=== PATIENT | female | born 1960 | race Two or more races ===

== ENCOUNTER 2017-03-23 00:14 | Emergency (ER) | payer MEDICAID ==
[2017-03-23] MEDS ORDERED: Albuterol/Ipratropium 3.0-0.5 MG/3 ML Neb Soln NEB ONE (00:44)
--- NOTE | 2017-03-23 00:47 | EDM.PDOC ---
ED HPI GENERAL MEDICAL PROBLEM - General Chief Complaint: Respiratory Problem Stated Complaint: COUGHING, CONGESTION Time Seen by Provider: 03/23/17 00:39 - History of Present Illness INITIAL COMMENTS - FREE TEXT/NARRATIVE: HISTORY AND PHYSICAL: History of present illness: The patient is a 56-year-old female with no stated radical history who presents with a 36 hour history of cough only occasionally productive of some clear phlegm sore throat body aches and subjective fevers and chills. She has not had any chest pain except when she coughs and otherwise does not have chest pain or abdominal pain. She has not taken her temperature with a thermometer. She has no vomiting or diarrhea and did not get her flu shot this year. Review of systems: As per history of present illness and below otherwise all systems reviewed and negative. Past medical history: As per history of present illness and as reviewed below otherwise noncontributory. Surgical history: As per history of present illness and as reviewed below otherwise noncontributory. Social history: No reported history of drug or alcohol abuse. Family history: As per history of present illness and as reviewed below otherwise noncontributory. Physical exam: Gen.: Well-developed well-nourished overweight female who is nontoxic and speaking clearly in the ED. Vital signs are noted by me HEENT: Atraumatic, normocephalic, pupils reactive, negative for conjunctival pallor or scleral icterus, mucous membranes moist, throat clear of exudates but there is posterior oropharyngeal erythema, there is no cervical adenopathy or nuchal rigidity, neck supple, nontender, trachea midline. Lungs: Clear to auscultation with diminished breath sounds at the bases but no worker breathing no stridor and no wheezing, breath sounds equal bilaterally, chest nontender. Heart: S1S2, regular, negative for clicks, rubs, or JVD. Abdomen: Soft, nondistended, nontender. Negative for masses or hepatosplenomegaly. Negative for costovertebral tenderness. Pelvis: Stable nontender. Genitourinary: Deferred. Rectal: Deferred. Extremities: Atraumatic, negative for cords or calf pain. Neurovascular unremarkable. Neuro: Awake, alert, oriented. Cranial nerves II through XII unremarkable. Cerebellum unremarkable. Motor and sensory unremarkable throughout. Exam nonfocal. Diagnostics: Rapid strep influenza chest x-ray EKG Therapeutics: DuoNeb Impression: Influenza A Discussed the patient and family at bedside Tamiflu and its low potency but will write a prescription that they can fill and take as they choose. Definitive disposition and diagnosis as appropriate pending reevaluation and review of above. chest Pain Score (Numeric/FACES): 9 - Related Data Allergies Allergy/AdvReac Type Severity Reaction Status Date / Time No Known Allergies Allergy Verified 03/23/17 00:28 Home Meds: Home Meds . 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 ED EXAM, GENERAL - Physical Exam Exam: See Below (See dictation) Course - Vital Signs Last Recorded V/S: Last Vital Signs Temp 37.1 C 03/23/17 00:28 Pulse 100 03/23/17 00:28 Resp 18 03/23/17 00:28 BP 168/86 H 03/23/17 00:28 Pulse Ox 93 L 03/23/17 00:28 - Orders/Labs/Meds Orders: Active Orders 24 hr Category Date Time Status EKG Documentation Completion [RC] STAT Care 03/23/17 00:44 Active RT Aerosol Therapy [RC] ASDIRECTED Care 03/23/17 00:44 Active Chest 2V [CR] Stat Exams 03/23/17 00:44 Taken CULTURE STREP A CONFIRMATION [RM] Stat Lab 03/23/17 01:00 Results STREP SCRN A RAPID W CULT CONF [RM] Stat Lab 03/23/17 01:00 Results Meds: Medications Discontinued Medications Generic Name Dose Route Start Last Admin Trade Name Freq PRN Reason Stop Dose Admin Albuterol/Ipratropium 3 ml 03/23/17 00:44 03/23/17 00:51 Duoneb 3.0-0.5 Mg/3 Ml NEB 03/23/17 00:45 3 ml ONETIME ONE Administration Departure - Departure Time of Disposition: 01:49 Disposition: Home, Self-Care 01 Condition: Good Clinical Impression: Influenza A - Discharge Information Referrals: PCP,None [Primary Care Provider] - Forms: ED Department Discharge Additional Instructions: The following information is given to patients seen in the emergency department who are being discharged to home. This information is to outline your options for follow-up care. We provide all patients seen in our emergency department with a follow-up referral. The need for follow-up, as well as the timing and circumstances, are variable depending upon the specifics of your emergency department visit. If you don't have a primary care physician on staff, we will provide you with a referral. We always advise you to contact your personal physician following an emergency department visit to inform them of the circumstance of the visit and for follow-up with them and/or the need for any referrals to a consulting specialist. The emergency department will also refer you to a specialist when appropriate. This referral assures that you have the opportunity for followup care with a specialist. All of these measure are taken in an effort to provide you with optimal care, which includes your followup. Under all circumstances we always encourage you to contact your private physician who remains a resource for coordinating your care. When calling for followup care, please make the office aware that this follow-up is from your recent emergency room visit. If for any reason you are refused follow-up, please contact the [facility] emergency department at and ask to speak to the emergency department charge nurse. [facility] Primary care- [place] [address] Please push hydration such as water Gatorade and juices and take Tylenol and Motrin every 6 hours for fevers and body aches. You can fill the prescription for Tamiflu as you choose and take it as directed. Please call and follow-up with one of our clinic providers or your provider in the next few days for reevaluation further care. Return to ER as needed and as discussed. Use the cough medicine you have been prescribed as needed - My Orders Last 24 Hours: My Active Orders 03/23/17 00:44 EKG Documentation Completion [RC] STAT RT Aerosol Therapy [RC] ASDIRECTED Chest 2V [CR] Stat 03/23/17 01:00 CULTURE STREP A CONFIRMATION [RM] Stat STREP SCRN A RAPID W CULT CONF [RM] Stat - Assessment/Plan Last 24 Hours: My Active Orders 03/23/17 00:44 EKG Documentation Completion [RC] STAT RT Aerosol Therapy [RC] ASDIRECTED Chest 2V [CR] Stat 03/23/17 01:00 CULTURE STREP A CONFIRMATION [RM] Stat STREP SCRN A RAPID W CULT CONF [RM] Stat
--- NOTE | 2017-03-23 09:46 | CR ---
EXAM DATE: 03/23/17 PATIENT'S AGE: 56 Patient: OSCAR ESTES Facility: [place], [place] Site Site : [id number] Study: XRay Chest [id number]/9/2018 1:23:31 AM Ordering Physician: OZZY MARVIN MD Final Report: INDICATION: Pain, shortness of breath. Cough since yesterday am. TECHNIQUE: Chest radiograph 2 views COMPARISON: None FINDINGS: Mediastinum: The heart silhouette is normal in size and morphology. The mediastinum is normal in appearance. Lungs: Both lungs are unremarkable in appearance. No sign of pleural effusion seen. No pneumothorax is identified. Bones and soft tissue: Unremarkable for age. IMPRESSION: 1. No acute cardiopulmonary disease is seen. Dictated by: Stuart Viramontes MD @ 03/23/2017 01:27:28 (Electronic Signature) Report Signed by Proxy. JESSICA
== END 2017-03-23 02:00 | disposition home or self-care (01) ==
LOC: MW.ED 00:14
DX: J10.1 Influenza due to other identified influenza virus with other respiratory manifestations (principal)
CPT/HCPCS: 71046; 71046-26; 87081; 87804; 87880; 93005; 94640; 99283; 99285-25

== ENCOUNTER 2018-12-02 10:08 | Emergency (ER) | payer MEDICAID, OTHER ==
[2018-12-02] MEDS ORDERED: Bupivacaine 0.5% 10 ML SDV INJECT ONE (10:13)
--- NOTE | 2018-12-02 10:13 | EDM.PDOC ---
ED HPI GENERAL MEDICAL PROBLEM - General Chief Complaint: Laceration Stated Complaint: FINGER INJURY Time Seen by Provider: 12/02/18 10:11 Source of Information: Reports: Patient History Limitations: Reports: No Limitations - History of Present Illness INITIAL COMMENTS - FREE TEXT/NARRATIVE: History of present illness: []Patient cut her left middle finger with a knife or cutting penaloza at work prior to arrival.Patient has no other complaints. Review of systems: As per history of present illness and below otherwise all systems reviewed and negative. Past medical history: As per history of present illness and as reviewed below otherwise noncontributory. Surgical history: As per history of present illness and as reviewed below otherwise noncontributory. Social history: No reported history of drug or alcohol abuse. Family history: As per history of present illness and as reviewed below otherwise noncontributory. Physical exam: General: Well developed, well nourished in NAD HEENT: Atraumatic, normocephalic, pupils reactive, negative for conjunctival pallor or scleral icterus, mucous membranes moist, throat clear, neck supple, nontender, trachea midline. Lungs: Clear to auscultation, breath sounds equal bilaterally, chest nontender. Heart: S1S2, regular, negative for clicks, rubs, or JVD. Abdomen: NABS, Soft, nondistended, nontender. Negative for masses or hepatosplenomegaly. Negative for costovertebral tenderness. Pelvis: Stable nontender. Genitourinary: Deferred. Rectal: Deferred. Extremities: Left middle finger and dorsal has a beveled cut superficial to the nail plate, negative for cords or calf pain. Neurovascular unremarkable. Neuro: Awake, alert, oriented. Cranial nerves II through XII unremarkable. Cerebellum unremarkable. Motor and sensory unremarkable throughout. Exam nonfocal. Skin:warm and dry Diagnostics: None Therapeutics: Wound sutured him a tetanus status updated ED Course: Stable Impression: Left middle finger laceration Prescriptions: None Plan: Take meds as directed, follow up with your primary care physician, return to ER if symptoms worsen or change. Definitive disposition and diagnosis as appropriate pending reevaluation and review of above. left hand Pain Score (Numeric/FACES): 10 - Related Data Allergies Allergy/AdvReac Type Severity Reaction Status Date / Time No Known Allergies Allergy Verified 03/23/17 00:28 Home Meds: Home Meds . 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: Musculoskeletal History: Reports: None Neurological History: Reports: None Psychiatric History: Reports: None Endocrine/Metabolic History: Reports: Hyperthyroidism - Infectious Disease History Infectious Disease History: Reports: Chicken Pox - Past Surgical History Female Surgical History: Reports: None Social & Family History - Family History Family Medical History: Noncontributory ED ROS GENERAL - Review of Systems Review Of Systems: See Below ED EXAM, SKIN/RASH Exam: See Below Course - Vital Signs Last Recorded V/S: Last Vital Signs Temp 98 F 12/02/18 10:27 Pulse 78 12/02/18 10:27 Resp 18 12/02/18 10:27 BP 183/74 H 12/02/18 10:27 Pulse Ox 95 12/02/18 10:27 - Orders/Labs/Meds Orders: Active Orders 24 hr Category Date Time Status Vaccines to be Administered [RC] PER UNIT ROUTINE Care 12/02/18 10:36 Active Meds: Medications Discontinued Medications Generic Name Dose Route Start Last Admin Trade Name Freq PRN Reason Stop Dose Admin Bupivacaine HCl 10 ml 12/02/18 10:13 12/02/18 10:58 Sensorcaine-Mpf 0.5% INJECT 12/02/18 10:14 10 ml ONETIME ONE Administration Diphtheria/Tetanus/Acell Pertussis 0.5 ml 12/02/18 10:36 12/02/18 10:58 Adacel IM 12/02/18 10:37 0.5 ml .ONCE ONE Administration Lidocaine HCl 5 ml 12/02/18 10:13 12/02/18 10:58 Xylocaine-Mpf 1% INJECT 12/02/18 10:14 5 ml ONETIME ONE Administration Departure - Departure Time of Disposition: 11:20 Disposition: Home, Self-Care 01 Condition: Good Clinical Impression: Laceration of left middle finger Qualifiers: Encounter type: initial encounter Damage to nail status: without damage Foreign body presence: without foreign body Qualified Code(s): S61.213A - Laceration without foreign body of left middle finger without damage to nail, initial encounter - Discharge Information *PRESCRIPTION DRUG MONITORING PROGRAM REVIEWED*: Not Applicable *COPY OF PRESCRIPTION DRUG MONITORING REPORT IN PATIENT KATHY: Not Applicable Referrals: PCP,Unknown [Primary Care Provider] - Forms: ED Department Discharge Additional Instructions: The following information is given to patients seen in the emergency department who are being discharged to home. This information is to outline your options for follow-up care. We provide all patients seen in our emergency department with a follow-up referral. The need for follow-up, as well as the timing and circumstances, are variable depending upon the specifics of your emergency department visit. If you don't have a primary care physician on staff, we will provide you with a referral. We always advise you to contact your personal physician following an emergency department visit to inform them of the circumstance of the visit and for follow-up with them and/or the need for any referrals to a consulting specialist. The emergency department will also refer you to a specialist when appropriate. This referral assures that you have the opportunity for follow-up care with a specialist. All of these measure are taken in an effort to provide you with optimal care, which includes your follow-up. Under all circumstances we always encourage you to contact your private physician who remains a resource for coordinating your care. When calling for follow-up care, please make the office aware that this follow-up is from your recent emergency room visit. If for any reason you are refused follow-up, please contact the [facility] Emergency Department at and asked to speak to the emergency department charge nurse. Take meds as directed, follow up with your primary care physician, return to ER if symptoms worsen or change. [facility] [address] [place] [id number] - My Orders Last 24 Hours: My Active Orders 12/02/18 10:36 Vaccines to be Administered [RC] PER UNIT ROUTINE - Assessment/Plan Last 24 Hours: My Active Orders 12/02/18 10:36 Vaccines to be Administered [RC] PER UNIT ROUTINE
[2018-12-02] MEDS ORDERED: Diphtheria,Pertussis(Acell),Tetanus Vaccine 0.5 ML Syringe IM ONE (10:36)
== END 2018-12-02 11:38 | disposition home or self-care (01) ==
LOC: MW.ED 10:08
DX: S61.213A Laceration without foreign body of left middle finger without damage to nail, initial encounter (principal); Z23 Encounter for immunization; W26.0XXA Contact with knife, initial encounter; Y99.0 Civilian activity done for income or pay
CPT/HCPCS: 12002; 90471; 90715; 99282; J2001; J3490

== ENCOUNTER 2018-12-22 18:06 | Emergency (ER) | payer BC, OTHER ==
--- NOTE | 2018-12-22 18:21 | EDM.PDOC ---
ED HPI GENERAL MEDICAL PROBLEM - General Chief Complaint: Back Pain or Injury Stated Complaint: BACK PAIN FOR 3 DAYS, VOMITING Time Seen by Provider: 12/22/18 18:17 Source of Information: Reports: Patient History Limitations: Reports: No Limitations, Language Barrier - History of Present Illness INITIAL COMMENTS - FREE TEXT/NARRATIVE: History of present illness: []She has had 2 days of low back pain with movement episode of vomiting. He denies any fevers, trauma, numbness, tingling or problems urinating. 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 She has no incontinence, Review of systems: As per history of present illness and below otherwise all systems reviewed and negative. Past medical history: As per history of present illness and as reviewed below otherwise noncontributory. Surgical history: As per history of present illness and as reviewed below otherwise noncontributory. Social history: No reported history of drug or alcohol abuse. Family history: As per history of present illness and as reviewed below otherwise noncontributory. Physical exam: General: Well developed, well nourished in NAD HEENT: Atraumatic, normocephalic, pupils reactive, negative for conjunctival pallor or scleral icterus, mucous membranes moist, throat clear, neck supple, nontender, trachea midline. Lungs: Clear to auscultation, breath sounds equal bilaterally, chest nontender. Heart: S1S2, regular, negative for clicks, rubs, or JVD. Abdomen: NABS, Soft, nondistended, nontender. Negative for masses or hepatosplenomegaly. Back shows reproducible tenderness along lumbar spine there is no paraspinal tenderness or CVA tenderness. Pelvis: Stable nontender. Genitourinary: Deferred. Rectal: Deferred. Extremities: Atraumatic, negative for cords or calf pain. Neurovascular unremarkable. Neuro: Awake, alert, oriented. Cranial nerves II through XII unremarkable. Cerebellum unremarkable. Motor and sensory unremarkable throughout. Exam nonfocal. Skin:warm and dry Diagnostics: Lumbar spine [id number] changes no acute fractures Therapeutics: Toradol, Flexeril ED Course: Stable Impression: acute low back pain Prescriptions: Diclofenac and Flexeril, take tramadol for severe pain at night Plan: Take meds as directed, follow up with your primary care physician, return to ER if symptoms worsen or change. Follow-up with primary care Definitive disposition and diagnosis as appropriate pending reevaluation and review of above. 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 History: Reports: 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: Musculoskeletal History: Reports: None Neurological History: Reports: None Psychiatric History: Reports: None Endocrine/Metabolic History: Reports: Hyperthyroidism - Infectious Disease History Infectious Disease History: Reports: Chicken Pox - Past Surgical History Female Surgical History: Reports: None Social & Family History - Family History Family Medical History: Noncontributory ED ROS GENERAL - Review of Systems Review Of Systems: See Below ED EXAM,LOWER BACK PAIN/INJURY - Physical Exam Exam: See Below Course - Vital Signs Last Recorded V/S: Last Vital Signs Temp 96.5 F 12/22/18 18:24 Pulse 77 12/22/18 18:24 Resp 18 12/22/18 18:24 BP 172/76 H 12/22/18 18:24 Pulse Ox 98 12/22/18 18:24 - Orders/Labs/Meds Meds: Medications Discontinued Medications Generic Name Dose Route Start Last Admin Trade Name Freq PRN Reason Stop Dose Admin Cyclobenzaprine HCl 10 mg 12/22/18 18:22 12/22/18 18:48 Flexeril PO 12/22/18 18:23 10 mg ONETIME ONE Administration Ketorolac Tromethamine 30 mg 12/22/18 18:22 12/22/18 18:48 Toradol IM 12/22/18 18:23 30 mg ONETIME ONE Administration Departure - Departure Time of Disposition: 18:59 Disposition: Home, Self-Care 01 Condition: Good Clinical Impression: Acute low back pain Qualifiers: Back pain laterality: midline Sciatica presence: without sciatica Qualified Code(s): M54.5 - Low back pain - Discharge Information *PRESCRIPTION DRUG MONITORING PROGRAM REVIEWED*: No *COPY OF PRESCRIPTION DRUG MONITORING REPORT IN PATIENT KATHY: No Prescriptions: Cyclobenzaprine [Flexeril] 10 mg PO BID PRN #12 tab PRN Reason: Pain Diclofenac Sodium [Voltaren] 75 mg PO BIDMEALS PRN #20 tab.cr PRN Reason: Pain traMADol HCl [Tramadol HCl] 50 mg PO Q6H PRN #16 tablet PRN Reason: Pain Referrals: PCP,None [Primary Care Provider] - Forms: ED Department Discharge Additional Instructions: The following information is given to patients seen in the emergency department who are being discharged to home. This information is to outline your options for follow-up care. We provide all patients seen in our emergency department with a follow-up referral. The need for follow-up, as well as the timing and circumstances, are variable depending upon the specifics of your emergency department visit. If you don't have a primary care physician on staff, we will provide you with a referral. We always advise you to contact your personal physician following an emergency department visit to inform them of the circumstance of the visit and for follow-up with them and/or the need for any referrals to a consulting specialist. The emergency department will also refer you to a specialist when appropriate. This referral assures that you have the opportunity for follow-up care with a specialist. All of these measure are taken in an effort to provide you with optimal care, which includes your follow-up. Under all circumstances we always encourage you to contact your private physician who remains a resource for coordinating your care. When calling for follow-up care, please make the office aware that this follow-up is from your recent emergency room visit. If for any reason you are refused follow-up, please contact the [facility] Emergency Department at and asked to speak to the emergency department charge nurse. Take meds as directed, follow up with your primary care physician, return to ER if symptoms worsen or change. [facility] [address] [place] [id number]
[2018-12-22] MEDS ORDERED: Ketorolac 30 MG/ML SDV IM ONE (18:22)
[2018-12-22] MEDS ORDERED: Cyclobenzaprine 10 MG Tab PO ONE (18:22)
--- NOTE | 2018-12-22 18:47 | CR ---
Indication: Back pain. Technique: Three views of the lumbar spine were obtained. Comparison: None Findings: Levoscoliosis of the spine is identified. The vertebral body heights are well maintained. Facet joint arthropathy is identified. No fracture or subluxation is identified. Impression: Degenerative change. Dictated by Michelle Acevedo MD @ Dec 22 2018 6:45PM Signed by Dr. Michelle Acevedo @ Dec 22 2018 6:46PM
== END 2018-12-22 19:19 | disposition home or self-care (01) ==
LOC: MW.ED 18:06
DX: M54.5 Low back pain (principal)
CPT/HCPCS: 72100; 72100-26; 96372; 99283-25; A9270-GY; J1885

== ENCOUNTER 2019-05-18 16:22 | Emergency (ER) | payer BC ==
--- NOTE | 2019-05-18 17:48 | EDM.PDOC ---
ED HPI GENERAL MEDICAL PROBLEM - General Chief Complaint: Skin Complaint Stated Complaint: HEAD INJURY Time Seen by Provider: 05/18/19 16:23 Source of Information: Reports: Patient, Family History Limitations: Reports: Language Barrier - History of Present Illness INITIAL COMMENTS - FREE TEXT/NARRATIVE: HISTORY AND PHYSICAL: History of present illness: Patient is a 58-year-old female who presents to the ED today with her son. Patient is primarily speaking. Manager [employer]iance was offered but patient prefers to use her son for translation. Patient presents to the ED today with concern of a bump on the side of her scalp that is tender to the touch that has been ongoing for the past 3 weeks. Patient states that when she presses on the area it does cause her to feel like she is having a headache. Patient denies any trauma or injury to her head. Patient denies any other symptoms or concerns. Patient denies fever, chills, chest pain, shortness of breath, or cough. Denies headache, neck stiff ness, change in vision, syncope, or near syncope. Denies nausea, vomiting, abdominal pain, diarrhea, constipation, or dysuria. Has not noted any blood in urine or stool. Patient has been eating and drinking appropriately. Review of systems: As per history of present illness and below otherwise all systems reviewed and negative. Past medical history: As per history of present illness and as reviewed below otherwise noncontributory. Surgical history: As per history of present illness and as reviewed below otherwise noncontributory. Social history: See social history for further information Family history: As per history of present illness and as reviewed below otherwise noncontributory. Physical exam: General: Patient is alert, oriented, and in no acute distress. Patient sitting comfortably on exam table. HEENT: Atraumatic, normocephalic, pupils equal and reactive bilaterally, negative for conjunctival pallor or scleral icterus, mucous membranes moist, TMs normal bilaterally, throat clear, neck supple, nontender, trachea midline. No drooling or trismus noted. No meningeal signs. No hot potato voice noted. Lungs: Clear to auscultation, breath sounds equal bilaterally, chest nontender. Heart: S1S2, regular rate and rhythm without overt murmur Abdomen: Soft, nondistended, nontender. Negative for masses or hepatosplenomegaly. Negative for costovertebral tenderness. Pelvis: Stable nontender. Genitourinary: Deferred. Rectal: Deferred. Skin: There is a 3 cm well demarcated erythematous tender nodule of the skin of the right side of the scalp superior to the top of the auricle without crusting , drainage, warmth, or sign of infection. intact, warm, dry. No lesions or rashes noted. Extremities: Atraumatic, negative for cords or calf pain. Neurovascular unremarkable. Neuro: Awake, alert, oriented. Cranial nerves II through XII unremarkable. Cerebellum unremarkable. Motor and sensory unremarkable throughout. Exam nonfocal. Notes: Discussed importance for follow-up with a primary care provider in general surgery. Voices understanding and is agreeable to plan of care. Denies any further questions or concerns at this time. Diagnostics: None Therapeutics: None Prescription: None Impression: Nodule, scalp, etiology undetermined Plan: 1. You can alternate ibuprofen and Tylenol as directed for pain and discomfort. Follow-up with a primary care provider as well as general surgeon as discussed. Return to the ED as needed and as discussed. Definitive disposition and diagnosis as appropriate pending reevaluation and review of above. headache Pain Score (Numeric/FACES): 10 - Related Data Allergies Allergy/AdvReac Type Severity Reaction Status Date / Time No Known Allergies Allergy Verified 12/22/18 18:27 Home Meds: Home Meds . 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 ED EXAM, SKIN/RASH Exam: See Below (see dictation) Course - Vital Signs Last Recorded V/S: Last Vital Signs Temp 96.8 F L 05/18/19 17:27 Pulse 86 05/18/19 17:27 Resp 16 05/18/19 17:27 BP 146/83 H 05/18/19 17:27 Pulse Ox 95 05/18/19 17:27 Departure - Departure Time of Disposition: 17:44 Disposition: Home, Self-Care 01 Clinical Impression: Nodule of skin of head - Discharge Information Referrals: PCP,None [Primary Care Provider] - Additional Instructions: The following information is given to patients seen in the emergency department who are being discharged to home. This information is to outline your options for follow-up care. We provide all patients seen in our emergency department with a follow-up referral. The need for follow-up, as well as the timing and circumstances, are variable depending upon the specifics of your emergency department visit. If you don't have a primary care physician on staff, we will provide you with a referral. We always advise you to contact your personal physician following an emergency department visit to inform them of the circumstance of the visit and for follow-up with them and/or the need for any referrals to a consulting specialist. The emergency department will also refer you to a specialist when appropriate. This referral assures that you have the opportunity for follow-up care with a specialist. All of these measure are taken in an effort to provide you with optimal care, which includes your follow-up. Under all circumstances we always encourage you to contact your private physician who remains a resource for coordinating your care. When calling for follow-up care, please make the office aware that this follow-up is from your recent emergency room visit. If for any reason you are refused follow-up, please contact the [facility] Emergency Department at and asked to speak to the emergency department charge nurse. [facility] [address], [place] [address] [address] [facility] - General Surgery Professional Building [address] [place], [address] [place] [address] 1. You can alternate ibuprofen and Tylenol as directed for pain and discomfort. Follow-up with a primary care provider as well as general surgeon as discussed. Return to the ED as needed and as discussed. Sepsis Event Note - Evaluation Sepsis Screening Result: No Definite Risk - Focused Exam Vital Signs: Vital Signs Temp Pulse Resp BP Pulse Ox 05/18/19 17:27 96.8 F L 86 16 146/83 H 95 Date Exam was Performed: 05/18/19 Time Exam was Performed: 17:44
== END 2019-05-18 18:10 | disposition home or self-care (01) ==
LOC: MW.ED 16:22
DX: R22.0 Localized swelling, mass and lump, head (principal); I10 Essential (primary) hypertension
CPT/HCPCS: 99282; 99283